=== PATIENT | male | born 1950 | race Caucasian/White ===

== ENCOUNTER 2021-01-01 15:41 | Outpatient (CLI) | payer SELFPAY ==
[2021-01-01 14:15] VITALS: BP 136/70; PULSE 79; TEMP 99.1
[2021-01-01 14:30] VITALS: BP 125/68; PULSE 76; TEMP 99.1
[2021-01-01 14:45] VITALS: BP 117/68; PULSE 76; TEMP 99.1
[2021-01-01 15:00] VITALS: BP 127/72; PULSE 74; TEMP 99.1
[2021-01-01 15:15] VITALS: BP 126/80; PULSE 76; TEMP 99.1
[2021-01-01 15:30] VITALS: BP 121/78; PULSE 72; TEMP 99.1
[2021-01-01] MEDS ORDERED: CENTRUM SILVER1 TAB PO (15:55)
[2021-01-01] MEDS ORDERED: CLARITIN 1010 MG/TAB PO (15:55)
[2021-01-01] MEDS ORDERED: ASPIRIN 81M81 MG/TA2 PO (15:56)
[2021-01-01] MEDS ORDERED: ADVIL200 MG PO (15:56)
[2021-01-01] MEDS ORDERED: MUCINEX1200 MG PO (15:57)
== END 2021-01-01 15:45 | disposition home or self-care (01) ==
LOC: EUO 15:41
DX: U07.1 COVID-19 (principal)
CPT/HCPCS: Q0244

== ENCOUNTER 2022-06-20 12:55 | Outpatient (RCR) | payer MEDICARE ==
[~2022-06-20 12:55] MED LIST: ADVIL200 MG PO; ASPIRIN 81M81 MG/TA2 PO; CENTRUM SILVER1 TAB PO; CLARITIN 1010 MG/TAB PO; MUCINEX1200 MG PO
== END 2022-06-21 | disposition home or self-care (01) ==
LOC: WSST
DX: R13.10 Dysphagia, unspecified (principal)

== ENCOUNTER 2022-06-23 09:17 | Outpatient (RCR) | payer MEDICARE | END 2022-07-22 | disposition home or self-care (01) | LOC: WSST | DX: R13.10 Dysphagia, unspecified (principal) ==

== ENCOUNTER → 2022-06-23 | Outpatient (CLI) | payer MEDICARE | LOC: COL.RAD 14:09 | DX: R13.10 Dysphagia, unspecified (principal) ==

== ENCOUNTER → 2024-01-29 | Outpatient (CLI) | payer MEDICARE ==
[~2024-01-29] MED LIST changes: +NS IV ONE; +SINCALIDE IV ONE
== END ==
LOC: COL.RAD 09:32
DX: R10.13 Epigastric pain (principal)
CPT/HCPCS: A9537-JZ; J2805